=== PATIENT | female | born 1990 | race Caucasian/White ===

== ENCOUNTER 2021-01-02 11:30 | Day surgery (SDC) | payer OTHER ==
[2020-12-30 14:36] VITALS: BMI 42.3
--- NOTE | 2021-01-02 06:57 | P.HPOR ---
History of Present Illness H&P Date: 01/02/21 Chief Complaint: Right small finger intra-articular middle phalanx fracture Age: 30 year Height: 5'7" Weight: 270 lbs BMI: 42.29 kg/m2 Subjective: This is a 30 year old female that presents today for initial evaluation regarding a right small finger injury that occurred on 12/24/20 while playing softball. She was most recently seen for a subacute right thumb intra-articular distal phalanx fracture several weeks ago but re-injured this hand in a new incident. She states her small finger was struck by a line drive in a softball game and she has immediate pain, swelling and deformity of the digit. She states the small finger was crooked at that time but an EMT pulled traction and reduced the digit and then jose martin taped the finger. She was seen at an ED in [place] where x rays were taken and she continued jose martin taping. She denies any other injuries. Physical Examination: RUE: AIN/PIN/Radial/Ulnar/Median motor intact. Radial/Ulnar/Median SILT. 2+/4 Radial/Ulnar pulses palpated. Swelling/ bruising at level of small finger PIP joint with limited ROM, 10-30 degrees at PIP joint. TTP over PIP joint. No obvious angular deformity, physical exam limited due to pain. Imaging: X-Rays of the right small finger demonstrate a comminuted, intra-articular middle phalanx pilon fracture with dorsal and volar articular fragments with articular impaction and joint incongruency on AP view. Impression: 1.)Right small finger displaced, intra-articular middle phalanx base pilon fracture. Plan: Diagnosis and treatment options were discussed with the patient. The complexity of the patients injury and fracture pattern was discussed in detail. Due to the amount of articular impaction, comminution and joint incongruity I recommend surgical intervention. We discussed that these particular fractures have an unpredictable outcome and that the goal of surgery would be to maintain reduction of the joint and provide a construct that will allow early protected range of motion. We discussed the possibility of ORIF vs. CRPP vs dynamic external fixation. She was understanding of the the possible treatment options and would like to proceed with surgery. Risks and benefits of surgery including bleeding, damage to surrounding tissue, infection, need for further surgery, progression of arthritis, stiffness, and need for therapy post operatively were discussed. The patient was agreeable with this plan of action and will be scheduled for surgery in the near future. -Robert Ruvalcaba DO Orthopedic Hand/Upper Extremity Surgeon Past Medical History Past Medical History: Musculoskeletal Disorder Additional Past Medical History / Comment(s): injured right pinky finger playing softball on Saturday, also has a healing fx. of right thumb History of Any Multi-Drug Resistant Organisms: None Reported Past Surgical History: Appendectomy, Bladder Surgery, Orthopedic Surgery Additional Past Surgical History / Comment(s): left knee surg., bladder surg. as a 6 y.o., EGD Past Anesthesia/Blood Transfusion Reactions: No Reported Reaction Smoking Status: Never smoker Medications and Allergies Home Medications Medication Instructions Recorded Confirmed Type Dextroamphetamine/Amphetamine 20 mg PO DAILY 12/30/20 12/30/20 History [Adderall] HYDROcodone/APAP 5-325MG [[place] 1 tab PO Q6HR PRN 12/30/20 12/30/20 History 5-325] Ibuprofen [Motrin Ib] 400 - 800 mg PO Q6H PRN 12/30/20 12/30/20 History Allergies Allergy/AdvReac Type Severity Reaction Status Date / Time medroxyprogesterone Allergy Rash/Hives Verified 12/30/20 13:52 [From Depo-Provera] Physical Examination Osteopathic Statement: *. No significant issues noted on an osteopathic structural exam other than those noted in the History and Physical/Consult.
[~2021-01-02 11:30] MED LIST: DEXAMETHASONE SOD PHOSPHATE 4 MG/ML 1 ML VIAL IV ONE; HYDROmorphone 0.5 MG/0.5 ML SYRINGE IVP PRN; LACTATED RINGERS 1,000 ML IV SCH; MIDAZOLAM 2 MG/2 ML VIAL IV PRN; ONDANSETRON 4 MG/2 ML VIAL IVP ONE; SCOPOLAMINE 1.5MG/72HR PATCH TRANSDERM ONE; ceFAZolin 3 GM in SODIUM CHLORIDE 0.9% 100 ML IVPB PRN
[2021-01-02] MEDS ORDERED: HYDROmorphone (PF) 1 MG/ML ONE (12:52)
[2021-01-02] MEDS ORDERED: SUCCINYLCHOLINE CHLORIDE VIAL 200 MG/10 ML VIAL IV ONE (12:52)
[2021-01-02] MEDS ORDERED: LIDOCAINE 1% INJ 10MG/ML (20 ML MDV) ONE (12:52)
[2021-01-02] MEDS ORDERED: fentaNYL (PF) 50 MCG/ML 2 ML AMP ONE (12:52)
[2021-01-02] MEDS ORDERED: PROPOFOL 10 MG/ML 20 ML VIAL IV ONE (12:52)
[2021-01-02] MEDS ORDERED: MIDAZOLAM 2 MG/2 ML VIAL ONE (12:52)
[2021-01-02] MEDS ORDERED: BUPIVACAINE (PF) 0.5% 30 ML VIAL MISCELLANE ONE ×2 (13:27→14:02)
[2021-01-02 14:27] VITALS: TEMP 97.4
[2021-01-02 15:20] VITALS: RESP 18
[2021-01-02 15:36] VITALS: BP 113/73; PULSE 75
[2021-01-02] MEDS ORDERED: ONDANSETRON 4 MG/2 ML VIAL ONE (15:38)
--- NOTE | 2021-01-02 19:59 | P.OP ---
Date of Procedure: 01/02/21 Preoperative Diagnosis: 1.) Right small finger intra-articular middle phalanx base fracture, comminuted. Postoperative Diagnosis: 1.) Right small finger intra-articular middle phalanx base fracture, comminuted Procedure(s) Performed: 1.) Closed treatment of articular fracture involving proximal interphalangeal joint with manipulation, right small finger middle phalanx. 2.) Application of dynamic external fixator, right small finger. Implants: .045 K-Wire x 3 Anesthesia: GETA Surgeon: Robert Ruvalcaba Estimated Blood Loss (ml): 5 Pathology: none sent Condition: stable Disposition: PACU Description of Procedure: This is a 30 year old female who sustained a complex comminuted right small finger intra-articular middle phalanx base fracture that occurred during a softball game. Due to the small size and amount of articular fragments involved, surgical intervention was recommended and patient presented today for operative fixation of her right small finger injury. Risks and benefits of surgery were discussed with the patient including bleeding, damage to surrounding tissue, infection, need for further surgery, need for hardware removal, stiffness, post traumatic arthritis as well as risks of anesthesia including pulmonary embolism and even and the patient wished to proceed with surgical intervention. The patients was seen in the pre-operative area by myself. Consent and H&P were completed and updated. The correct extremity was marked in the pre-operative area by myself and all other questions were answered. Operative Narrative: The patient was brought to the operating room by the department of anesthe valerie. They remained on the portable stretcher and a rolling hand table was brought to the side of the operative extremity. Pre-operative time out was performed indicating the correct patient, procedure and laterality. All in the room agreed. Pre-operative antibiotics were given prior to skin incision. The patient was then drifted off to sleep by the department of anesthesia. A nonsterile tourniquet was then applied to the operative extremity and the right upper extremity was then prepped and draped in normal sterile fashion. Tourniquet was not inflated for this procedure. With use of mini C-arm the fracture was visualized on AP/Lat/ Oblique views and due to the extensive intra-articular comminution of the middle phalanx base involving the proximal interphalangeal joint and the small size of the multiple fragments, ORIF and CRPP to restore anatomic reduction of the articular surface would not be possible, therefore decision was made to go forward with closed reduction and application of dynamic external fixation with a Ana Maria type frame design. Under direct fluoroscopy a 0.045 K-wire was inserted at the center of rotation of the proximal phalanx head, parallel to the joint surface, this was the axial traction pin. Next, another 0.045 K-wire was inserted at the center of rotation of the distal portion of the middle phalanx centered in the volar/dorsal plane and parallel to the DIP joint, this made up the hook pin of the Ana Maria frame. Next, another 0.045 K-wire was inserted in a neutral position at the mid portion of the middle phalanx, distal to the fracture size, again par rallel to the joint. Pin placement was placed slightly dorsal due to slight dorsal subluxation appreciated on the lateral view, this would aid in reducing the dorsal subluxation and served as the reduction pin in the frame. All pins were then bent on both sides 90 degrees. Using a ruler, a distance of 2.5cm between the axial pin and the hook pin was marked on the axial pin and a S shape was bent into the axial pin distally and edge was cut with pin cutter. The hook pin of the frame was then bent in an C shape and edges were cut with pin cutter. Next, the reduction pin was then brought volar to the axial pin to aid in correcting dorsal subluxation and edges were then bent centrally to aid in traction pin stability A sterile rubber baldwin catheter was then cut in to 1mm small circles to utilize as a rubber band for the radial and ulnar sides to provide gentle light traction. Rubber bands were then connected to the hook and axial traction pin. X-ray then confirmed joint reduction and improvement in articular congruency and appropriate tensioned traction with 1mm of joint distraction. A right small finger digital block was performed with 8 cc of 0.5% Bupivicaine. A sterile dressing consisting of 4x4, webril and a plaster ulnar gutter splint was placed. The patient was then woken by the department of anesthesia and transferred to PACU in stable condition. Expected post operative course: Due to stable construct and joint reduction we will plan to initiate early ROM in the dynamic external fixator. Her post operative dressing is to stay on until her first hand therapy visit, ideally between POD 3-5. Active and passive ROM can be performed at the DIP, PIP and MCP joints to tolerance. She may wear a thermoplastic splint at night to protect the frame while sleeping and while doing activities during the day but may come out of it multiple times a day to work on range of motion. Daily pin site cleaning with alcohol or peroxide can be performed but is not necessary as long as frame is kept clean and dry and no signs of infection are present. She may begin to shower with the frame after the post operative splint is removed but is to avoid any soaking or submerging the hand in the water and is to perform clean, dry left handed activities only until follow up. Referral to hand therapy was given to patient and she will follow up with myself in 2 weeks. Robert Ruvalcaba D.O. Orthopedic Hand/Upper Extremity Surgeon
== END 2021-01-02 16:09 | disposition home or self-care (01) ==
LOC: OR 11:30
PROVIDERS: ATTEND Orthopaedic Surgery Hand Surgery
DX: S62.626A Displaced fracture of middle phalanx of right little finger, initial encounter for closed fracture (principal); Y93.64 Activity, baseball; Z88.8 Allergy status to other drugs, medicaments and biological substances; F90.9 Attention-deficit hyperactivity disorder, unspecified type; F41.9 Anxiety disorder, unspecified; Z79.899 Other long term (current) drug therapy
CPT/HCPCS: 81025; 26742; J2250; J0330; J1100; J0690; J2405; J2001; J3010; J1170; J2704